=== PATIENT | female | born 1945 | race Caucasian/White ===

== ENCOUNTER 2023-10-10 10:39 | Inpatient (IN) ==
--- NOTE | 2023-10-10 11:04 | Emergency Department Note ---
Impression & Plan Pancreatitis, Abdominal pain, Diarrhea, Hypokalemia ED Provider Note NAME: BRITTNEY FRANK AGE: 77 SEX: F : 1945 ARRIVES VIA: Walk-In INFORMANT: Patient ED PROVIDER(S): Loc Drew DO CHIEF COMPLAINT: diarrhea HPI: Patient is a 77-year-old female who presents to the ER for diarrhea. She notes this has been going on since this past . She was initially going every 1/2 hour but now is only going about 4 times so far today. She notes that it has improved. No vomiting but does have nausea. She is cramping in her stomach which comes and goes intermittently. Denies any chest pain or shortness of breath. No dysuria, urgency or frequency. No other exacerbating or remitting factors. She saw her PCP who noted that this will likely resolve on its own is most likely viral. She does feel very weak and tired. ADDITIONAL HISTORY OBTAINED: Additional history obtained from family who is present at bedside who notes that they saw her PCP and he did nothing for her Chronic Medical/Social Conditions Affecting Care: Per HPI PAST MEDICAL HISTORY:See Below PAST SURGICAL HISTORY:See Below FAMILY HISTORY:See Below SOCIAL HISTORY:See Below HOME MEDICATIONS:See Below ALLERGIES:See Below VITALS:See Below PHYSICAL EXAMINATION: GENERAL: Sitting up in bed, alert, well appearing, well nourished, no distress, non-toxic EYE EXAM: normal conjunctiva. OROPHARYNX: no exudate, no erythema, lips, buccal mucosa, and tongue normal and mucous membranes are moist NECK: supple, no nuchal rigidity, no adenopathy, non-tender LUNGS: Clear to auscultation. Normal chest wall mechanics HEART: no murmurs, S1 normal and S2 normal ABDOMEN: abdomen soft, non-tender, normo-active bowel sounds, no masses, no rebound or guarding. UPPER EXTREMITIES: upper extremities are grossly normal. LOWER EXTREMITIES: No pitting edema. NEURO EXAM: Normal sensorium, cranial nerves II-XII grossly intact, normal speech, no gross weakness of arms, no gross weakness of legs. MEDICAL DECISION MAKING: Patient is a 77-year-old female who presents ER for above-stated complaint. IV was established blood work was obtained. Labs show no significant leukocytosis or anemia. BMP with a mild hyponatremia at 133. Mild hypokalemia 3.4. LFTs and bilirubin is fairly unremarkable. Lipase is normal. UA was clean. Stool culture pending upon admission. CT abdomen pelvis suggested pancreatitis although no bump in lipase. She is having some trouble eating. Discussed with gastroenterology they evaluated the patient at bedside and recommended monitoring overnight. Discussed with hospitalist for further observation and management. CT did suggest an equivocal diverticulitis combination with a PD stone. PD stone is known to patient. Will hold on antibiotics due to the result of stool cultures and defer to hospitalist Consults/Care Managements Discussions: Per MDM Triage Nursing notes reviewed. Limited review of prior medical records performed Vital Signs: reviewed and remarkable for HTN Differential diagnosis: Differential diagnoses includes but is not limited to gastritis, peptic ulcer disease, GERD, gallbladder disease, pancreatitis, small bowel obstruction, appendicitis, diverticulitis, hernia, urinary tract infection, torsion, perforation, trauma, infectious. ER treatment provided: See below Diagnostics interpreted by me include EKG and cardiac monitoring as listed below: -Cardiac Monitoring: An order was placed for continuous cardiac monitoring. The monitor shows a rate of 80 with sinus rhythm. -ECG: none -Laboratory studies:Interpreted by me as stated above in MDM and shown below. Imaging studies: Xrays: As interpreted by me:none CTs show: CT abdomen pelvis per my preliminary interpretation showed no obvious bowel obstruction CT and pelvis per radiologist described above Procedures:none Critical Care: None Past Med/Surg History Problem List (Updated 10/10/23 @ 14:21 by Loc Drew DO) Hypokalemia (Acute) Diarrhea (Acute) Abdominal pain (Acute) Pancreatitis (Acute) Social History Smoking Status: Never smoker Preferred Language: Georgian Feels Safe at Home: Yes Allergies Allergies Allergy/AdvReac Type Severity Reaction Status Date / Time clindamycin Allergy Diarrhea Verified 10/10/23 10:46 Penicillins Allergy Hives Verified 10/10/23 10:45 Results & Data (ED) Vital Signs Vital Signs - 24 hr 10/10/23 10:46 10/10/23 12:24 10/10/23 12:24 Temperature 36.2 C L Temperature Source Temporal Artery Scan Pulse Rate 76 Pulse Rate [Finger] 69 Pulse Rhythm Regular Pulse Strength Normal Respiratory Rate 18 14 Respiratory Effort / Characteristics Non-Labored Spontaneous Respiratory Depth Normal Respiratory Pattern Regular Blood Pressure 189/80 H Blood Pressure [Right Arm] 161/78 H Blood Pressure Mean 116 Blood Pressure Mean [Right Arm] 105 Blood Pressure Position Sitting Pulse Oximetry 99 99 Oxygen Delivery Method Room Air Room Air Room Air Sepsis Recent Fever Within 48 Hours No Sepsis New/Unexplained Change in Mental Status No Sepsis Action Taken by Nursing No Action Required 10/10/23 13:00 10/10/23 14:00 10/10/23 14:03 Temperature Temperature Source Pulse Rate 78 Pulse Rate [Finger] 79 81 Pulse Rhythm Pulse Strength Respiratory Rate 18 14 Respiratory Effort / Characteristics Respiratory Depth Respiratory Pattern Blood Pressure Blood Pressure [Right Arm] 175/87 H 183/91 H Blood Pressure Mean Blood Pressure Mean [Right Arm] 116 121 Blood Pressure Position Pulse Oximetry 95 98 Oxygen Delivery Method Room Air Room Air Sepsis Recent Fever Within 48 Hours Sepsis New/Unexplained Change in Mental Status Sepsis Action Taken by Nursing Laboratory Data 10/10/23 11:27 10/10/23 11:27 Lab Results 10/10/23 10/10/23 10/10/23 Range/Units 11:27 11:35 12:00 WBC 7.71 (4.8-10.8) K/ul RBC 4.75 (4.20-5.40) M/uL Hgb 14.7 (12.0-16.0) g/dl POC Hgb 13.9 (12.0-16.0) g/dl Hct 41.4 (37.0-47.0) % POC Hct 41 (37-47) % MCV 87.2 (80.0-100.0) fL MCH 30.9 (25.0-34.0) pg MCHC 35.5 (32.0-36.0) g/dL RDW Std Deviation 44.1 (36.4-46.3) fL RDW Coeff of Joaquín 13.8 (11.5-14.5) % Plt Count 293 (130-400) K/uL MPV 10.7 (9.4-12.4) fL Immature Gran % (Auto) 0.3 % Neut % (Auto) 58.3 % Lymph % (Auto) 31.9 % Nolan % (Auto) 7.3 % Eos % (Auto) 1.9 % Baso % (Auto) 0.3 % Neut # (Auto) 4.50 (1.40-6.50) K/uL Lymph # (Auto) 2.46 (1.20-3.40) K/uL Nolan # (Auto) 0.56 (0.11-0.59) K/uL Eos # (Auto) 0.15 (0.00-0.50) K/uL Baso # (Auto) 0.02 (0.00-0.20) K/uL Immature Gran # (Auto) 0.02 (0.01-0.20) K/uL POC Sodium 135 (135-144) mmol/L Sodium 133 L (136-145) mmol/L POC Potassium 3.4 (3.3-5.0) mmol/L Potassium 3.4 L (3.5-5.1) mmol/L POC Chloride 101 (101-112) mmol/L Chloride 101 (98-107) mmol/L Carbon Dioxide 22 (21-32) mmol/L POC Total CO2 20 L (24-31) mmol/L Anion Gap 10 (3-11) POC Anion Gap 19.0 (16-25) mmol/L POC BUN 13 (7-18) mg/dl BUN 15 (6-23) mg/dl Creatinine 0.98 (0.6-1.2) mg/dl POC Creatinine 1.0 (0.6-1.3) mg/dl Est Cr Clr Drug Dosing 57.1 ml/min Est GFR ( Amer) 64.5 ml/min Est GFR (Non-Af Amer) 55.6 ml/min BUN/Creatinine Ratio 15.3 (10-20) Glucose 146 H (70-99(Fasting)) mg/dl POC Glucose (other) 141 H (70-99) mg/dl Calcium 9.2 (8.6-10.3) mg/dl POC Ioniz Calcium Tuan 1.11 L (1.12-1.32) mmol/l Total Bilirubin 1.1 H (0.2-1.0) mg/dl AST 33 (13-39) U/L ALT 59 H (7-52) U/L Alkaline Phosphatase 88 (34-104) U/L Total Protein 7.3 (6.0-8.3) gm/dl Albumin 4.1 (3.4-5.0) gm/dl Globulin 3.2 (2.5-4.0) gm/dl Albumin/Globulin Ratio 1.3 (0.9-2) Lipase 26 (11-82) U/L Urine Color Yellow Urine Appearance Clear (Clear) Urine pH 6.0 (4.5-7.5) Ur Specific [place] 1.010 (1.000-1.030) Urine Protein Negative (Negative) Urine Glucose (UA) Negative (Negative) Urine Ketones Negative (Negative) Urine Blood Negative (Negative) Urine Nitrite Negative (Negative) Urine Bilirubin Negative (Negative) Urine Urobilinogen Negative (Negative) Ur Leukocyte Esterase Negative (Negative) Administered Medications Potassium Chloride (K Tushar / Wtr) 10 meq in 100 mls @ 100 mls/hr IV Q1H TERI Stop: 10/10/23 15:44 Last Admin: 10/10/23 13:56 Dose: 100 mls/hr Documented By: NURYS Discontinued Medications Sodium Chloride (Nss) 1,000 mls @ 999 mls/hr IV .Q1H1M ONE Stop: 10/10/23 12:00 Last Infusion: 10/10/23 13:33 Dose: Infused Documented By: Admin: 10/10/23 11:21 Dose: 999 mls/hr Documented By: NURYS Ioversol (Optiray 320 100ml) 94 ml IV ONCE ONE Stop: 10/10/23 11:43 Last Admin: 10/10/23 11:43 Dose: 94 ml Documented By: JODY Imaging Data Radiologist's Impression: Abdomen/Pelvis CT 10/10/23 11:[address] WITH IV CONTRAST CT DOSE: 1324.46 mGy.cm HISTORY: Acute generalized abdominal pain with diarrhea abd pain w/ diarrhea TECHNIQUE: Multiaxial CT images of the abdomen and pelvis were performed following the IV administration of 94 cc of Optiray, A dose lowering technique was utilized adhering to the principles of ALARA. COMPARISON STUDY: None. FINDINGS: Coronary artery calcifications. No acute lower thoracic abnormality. No free air. Unremarkable spleen, and adrenal glands. Cholecystectomy. Intrahepatic and extrahepatic biliary ductal dilation with the common bile duct measuring 11 mm. The pancreatic duct is dilated measuring up to 6 mm. Questioned mild interstitial edema of the pancreatic head and uncinate process. There is a 0.7 x 0.6 x 1.3 cm stone within the pancreatic duct just proximal to the ampulla. There is an additional 4 mm calcification within the uncinate process of the pancreas on image 155 series 3. Hepatic steatosis. Patency of the hepatic and portal veins. Unremarkable kidneys. Right-sided pelviectasis versus renal sinus cyst. No renal or ureteral calculi or hydronephrosis. Hysterectomy with pelvic floor relaxation. Unremarkable urinary bladder. Atherosclerosis of the aorta without aneurysm. Subcentimeter retroperitoneal lymph nodes. No bowel obstruction. Colonic diverticulosis. Minimal inflammatory stranding adjacent to the proximal sigmoid on image 223. Scattered large and small bowel air-fluid levels. Appendectomy. Chronic area of suggested epiploic appendagitis within the abdominal lower quadrant on image 209 measures 1.7 cm. No ascites. Diastases recti with small fat filled umbilical hernia. Degenerative changes of the shoulders and spine. Grade 1 anterolisthesis L4 on L5 secondary to severe chronic facet arthrosis. IMPRESSION: 1. Cholecystectomy with likely postsurgical biliary duct dilation. Additionally, there is pancreatic ductal dilation with equivocal mild acute pancreatitis associated with a 1.3 cm pancreatic ductal stone just proximal to the ampulla. GI consultation is needed. 2. Colonic diverticulosis with equivocal findings of proximal sigmoid diverticulitis. 3. No bowel obstruction or pneumoperitoneum. 4. Scattered colonic air-fluid levels compatible with the patient's history of diarrhea. 5. Hepatic steatosis. ACT 112: Negative or not required by law. The above report was generated using voice recognition software. It may contain grammatical, syntax or spelling errors. Electronically signed by: Jose Alfredo Maria M.D. 10/10/2023 12:28 PM Discharge Plan Visit Data Chief Complaint: Diarrhea Stated Complaint: DIARRHEA FOR 6 DAYS ED Provider: Loc Drew Discharge Problem: Pancreatitis, Abdominal pain, Diarrhea, Hypokalemia Forms Stand Alone Forms: [facility] Referrals Referrals: PCP,NO [Physician] - Discharge Problem: Pancreatitis Qualifiers: Chronicity: acute Pancreatitis type: unspecified pancreatitis type Acute pancreatitis complication: unspecified Qualified Code(s): K85.90 - Acute pancreatitis without necrosis or infection, unspecified Abdominal pain Qualifiers: Abdominal location: unspecified location Qualified Code(s): R10.9 - Unspecified abdominal pain Diarrhea Qualifiers: Diarrhea type: unspecified type Qualified Code(s): R19.7 - Diarrhea, unspecified
[2023-10-10] MEDS: SODIUM CHLORIDE 0.9% 1,000 ML IV ONE (11:21)
[2023-10-10] MEDS: OPTIRAY 320 100ml IV ONE (11:43)
[2023-10-10 11:47] LABS: iSTAT Hemoglobin 13.9 g/dl (12.0-16.0); iSTAT Ionized Calcium 1.11 mmol/l (1.12-1.32); iSTAT Potassium 3.4 mmol/L (3.3-5.0)
[2023-10-10 12:02] LABS: Basophils # (auto) 0.02 K/uL (0.00-0.20); Basophils % (auto) 0.3 %; Eosinophils # (auto) 0.15 K/uL (0.00-0.50); Eosinophils % (auto) 1.9 %; Hematocrit (blood only) 41.4 % (37.0-47.0); Hemoglobin 14.7 g/dl (12.0-16.0); Immature Granulocytes # (auto) 0.02 K/uL (0.01-0.20); Immature Granulocytes % (auto) 0.3 %; Lymphocytes # (auto) 2.46 K/uL (1.20-3.40); Lymphocytes % (auto) 31.9 %; Mean Corpuscular Hemoglobin 30.9 pg (25.0-34.0); Mean Corpuscular Hgb Conc 35.5 g/dL (32.0-36.0); Mean Corpuscular Volume 87.2 fL (80.0-100.0); Mean Platelet Volume 10.7 fL (9.4-12.4); Monocytes # (auto) 0.56 K/uL (0.11-0.59); Monocytes % (auto) 7.3 %; Neutrophils % (auto) 58.3 %; Platelet Count 293 K/uL (130-400); RDW Coefficient of Variation 13.8 % (11.5-14.5); RDW Standard Deviation 44.1 fL (36.4-46.3); Red Blood Count 4.75 M/uL (4.20-5.40); White Blood Count 7.71 K/ul (4.8-10.8)
[2023-10-10 12:18] LABS: Albumin Globulin Ratio 1.3 (0.9-2); Albumin Level 4.1 gm/dl (3.4-5.0); BUN Creatinine Ratio 15.3 (10-20); Bilirubin,Total 1.1 mg/dl (0.2-1.0); Calcium 9.2 mg/dl (8.6-10.3); Creatinine Clr Calc Pharmacy 57.1 ml/min; Est GFR (African American) 64.5 ml/min; Est GFR (Non-African American) 55.6 ml/min; Globulin 3.2 gm/dl (2.5-4.0); Potassium 3.4 mmol/L (3.5-5.1); Total Protein 7.3 gm/dl (6.0-8.3)
[2023-10-10 12:19] LABS: Appearance Urine Clear (Clear); Bilirubin Urine Negative (Negative); Blood Urine Negative (Negative); Color Urine Yellow; Glucose Urine UA Negative (Negative); Ketones Urine Negative (Negative); Leukocyte Esterase Urine Negative (Negative); Nitrite Urine Negative (Negative); Protein Urine Negative (Negative); Urobilinogen Urine Negative (Negative)
--- NOTE | 2023-10-10 12:30 | CT Scan Report ---
ABDOMEN AND PELVIS CT WITH IV CONTRAST CT DOSE: 1324.46 mGy.cm HISTORY: Acute generalized abdominal pain with diarrhea abd pain w/ diarrhea TECHNIQUE: Multiaxial CT images of the abdomen and pelvis were performed following the IV administrat ion of 94 cc of Optiray, A dose lowering technique was utilized adhering to the principles of ALARA. COMPARISON STUDY: None. FINDINGS: Coronary artery calcifications. No acute lower thoracic abnormality. No free air. Unremarka ble spleen, and adrenal glands. Cholecystectomy. Intrahepatic and extrahepatic biliary ductal dilatio n with the common bile duct measuring 11 mm. The pancreatic duct is dilated measuring up to 6 mm. Que stioned mild interstitial edema of the pancreatic head and uncinate process. There is a 0.7 x 0.6 x 1 .3 cm stone within the pancreatic duct just proximal to the ampulla. There is an additional 4 mm calc ification within the uncinate process of the pancreas on image 155 series 3. Hepatic steatosis. Paten cy of the hepatic and portal veins. Unremarkable kidneys. Right-sided pelviectasis versus renal sinus cyst. No renal or ureteral calculi or hydronephrosis. Hysterectomy with pelvic floor relaxation. Unremarkable urinary bladder. Atheroscl erosis of the aorta without aneurysm. Subcentimeter retroperitoneal lymph nodes. No bowel obstruction . Colonic diverticulosis. Minimal inflammatory stranding adjacent to the proximal sigmoid on image 22 3. Scattered large and small bowel air-fluid levels. Appendectomy. Chronic area of suggested epiploic appendagitis within the abdominal lower quadrant on image 209 measures 1.7 cm. No ascites. Diastases recti with small fat filled umbilical hernia. Degenerative changes of the shoulders and spine. Grade 1 anterolisthesis L4 on L5 secondary to severe chronic facet arthrosis. IMPRESSION: 1. Cholecystectomy with likely postsurgical biliary duct dilation. Additionally, there is pancreatic ductal dilation with equivocal mild acute pancreatitis associated with a 1.3 cm pancreatic ductal sto ne just proximal to the ampulla. GI consultation is needed. 2. Colonic diverticulosis with equivocal findings of proximal sigmoid diverticulitis. 3. No bowel obstruction or pneumoperitoneum. 4. Scattered colonic air-fluid levels compatible with the patient's history of diarrhea. 5. Hepatic steatosis. ACT 112: Negative or not required by law. The above report was generated using voice recognition software. It may contain grammatical, syntax o r spelling errors. Electronically signed by: Jose Alfredo Maria M.D. 10/10/2023 12:28 PM
--- NOTE | 2023-10-10 12:52 | Gastrointestinal Consultation ---
Date of Consultation October 10, 2023 Assessment & Plan (1) Pancreatitis: 77 year old female with presented to the ED w/ worsening diarrhea x 1 week, distant history of c.diff colitis years ago, imaging incidentally showing PD dilation, PD stone and acute pancreatitis. She is s/p CCY years ago, no apparent CBD stone on imaging - Diarrhea, equivocal colitis vs diverticulitis on imaging - She is having a difficult time maintaining fluid intake - Consider admission for observation - Check stool culture and c.diff - If negative, consider low dose Questran once daily - CBD dilation, PD dilation, PD stone and acute pancreatitis - Symptomatic management - LR fluid hydration - Antiemetics PRN - May have clear liquids - Should have a referral for an outpatient EUS to be completed in about 4 weeks time Thank you for allowing us to participate in the care of this patient. Please call with any acute changes, questions or concerns. Please see addendum below with additional recommendation from my supervising physician. I spent a total of 60 minutes on the date of service in review of patient's record, and previously obtained information in person and appropriate medical visit, discussion and education of plan, with patient and/or caregiver, placing orders for tests/referral/procedures as medically necessary and documentation of pertinent clinical information in patient's medical records for their visit today. Supervising Physician Co-Signing Physician Notes I examined the patient and reviewed patient's chart , laboratory data and imaging studies. I agree with with assessment and plan of care as suggested by advanced practice provider History of Present Illness Reason for Consultation: pancreatitis Requesting Physician: Rajendra Attending Physician: Mike Joyner History of Present Illness 77 year old female with history of c diff colitis around 2014, s/p ccy, HTN, dyslipidemia who presented to the ED for worsening diarrhea x 1 week. Notes she has had history of c.diff years ago after a course of ABX. Does suggest in some case, has had intermittent diarrhea since. Over the last week or so, diarrhea has become severe, constant and daily. Watery stools. No black or bloody stools. Has already had 5 loose stools daily. No abd pain. Mild nausea. No vomiting. No pain. No appetite. No GERD. No dysphagia. Weight stable Labs: normal WBC, H&H, PLT, BUN/ANALYTICS CONSULTANT, Tbili 1.1, AST 33, ALT 59, ALKP 88, lipase 26 CTAP 2023: Cholecystectomy with likely postsurgical biliary duct dilation. Additionally, there is pancreatic ductal dilation with equivocal mild acute pancreatitis associated with a 1.3 cm pancreatic ductal stone just proximal to the ampulla. GI consultation is needed. Colonic diverticulosis with equivocal findings of proximal sigmoid diverticulitis. No bowel obstruction or pneumoperitoneum. Scattered colonic air-fluid levels compatible with the patient's history of diarrhea. Hepatic steatosis. Notes a colonoscopy at [facility] about 3-4 years ago. She has history of diverticulitis. Does not recall ever having EUS or ERCP in the past Has never had pancreatitis in the past Allergies Allergy/AdvReac Type Severity Reaction Status Date / Time clindamycin Allergy Diarrhea Verified 10/10/23 14:38 Penicillins Allergy Hives Verified 10/10/23 14:38 Home Medications Medication Instructions Recorded Confirmed Type acidophilus 25 million 1 tab PO DAILY 10/10/23 10/10/23 History cell-pectin, citrus 100 mg tablet atorvastatin 20 mg tablet 20 mg PO DAILY 10/10/23 10/10/23 History diltiazem HCl 180 mg 180 mg PO DAILY 10/10/23 10/10/23 History capsule,extended release 24 hr fluticasone propionate 50 2 spray intranasal DAILY PRN 10/10/23 10/10/23 History mcg/actuation nasal congestion/allergies spray,suspension naproxen sodium 220 mg tablet 220 mg PO DAILY 10/10/23 10/10/23 History (Aleve) omeprazole 20 mg capsule,delayed 20 mg PO BID 10/10/23 10/10/23 History release Patient History Social History Smoking Status: Never smoker Preferred Language: Belarusian Feels Safe at Home: Yes Review of Systems Review of Systems: All other findings negative except as noted in HPI. Physical Exam Constitutional: WD/WN, vitals as above Respiratory: normal respiratory effort, lungs clear to auscultation Cardiovascular: Rate/Rhythm: regular rate and regular rhythm Gastrointestinal (Abdomen): normal bowel sounds, soft, nontender, no hepatos plenomegaly Skin: no rashes, warm and dry Results & Data Vital Signs (Past 12 Hours) Vital Signs Temp Pulse Pulse Resp BP BP Pulse Ox 10/10/23 12:24 10/10/23 12:24 69 14 161/78 H 99 10/10/23 10:46 36.2 C L 76 18 189/80 H 99 O2 Del Method 10/10/23 12:24 Room Air 10/10/23 12:24 Room Air 10/10/23 10:46 Room Air Laboratory Results 10/10/23 10/10/23 10/10/23 Range/Units 12:00 11:35 11:27 WBC 7.71 (4.8-10.8) K/ul RBC 4.75 (4.20-5.40) M/uL Hgb 14.7 (12.0-16.0) g/dl POC Hgb 13.9 (12.0-16.0) g/dl Hct 41.4 (37.0-47.0) % POC Hct 41 (37-47) % MCV 87.2 (80.0-100.0) fL MCH 30.9 (25.0-34.0) pg MCHC 35.5 (32.0-36.0) g/dL RDW Std Deviation 44.1 (36.4-46.3) fL RDW Coeff of Joaquín 13.8 (11.5-14.5) % Plt Count 293 (130-400) K/uL MPV 10.7 (9.4-12.4) fL Immature Gran % (Auto) 0.3 % Neut % (Auto) 58.3 % Lymph % (Auto) 31.9 % [place] % (Auto) 7.3 % Eos % (Auto) 1.9 % Baso % (Auto) 0.3 % Neut # (Auto) 4.50 (1.40-6.50) K/uL Lymph # (Auto) 2.46 (1.20-3.40) K/uL [place] # (Auto) 0.56 (0.11-0.59) K/uL Eos # (Auto) 0.15 (0.00-0.50) K/uL Baso # (Auto) 0.02 (0.00-0.20) K/uL Immature Gran # (Auto) 0.02 (0.01-0.20) K/uL POC Sodium 135 (135-144) mmol/L Sodium 133 L (136-145) mmol/L POC Potassium 3.4 (3.3-5.0) mmol/L Potassium 3.4 L (3.5-5.1) mmol/L POC Chloride 101 (101-112) mmol/L Chloride 101 (98-107) mmol/L Carbon Dioxide 22 (21-32) mmol/L POC Total CO2 20 L (24-31) mmol/L Anion Gap 10 (3-11) POC Anion Gap 19.0 (16-25) mmol/L POC BUN 13 (7-18) mg/dl BUN 15 (6-23) mg/dl Creatinine 0.98 (0.6-1.2) mg/dl POC Creatinine 1.0 (0.6-1.3) mg/dl Est Cr Clr Drug Dosing 57.1 ml/min Est GFR ( Amer) 64.5 ml/min Est GFR (Non-Af Amer) 55.6 ml/min BUN/Creatinine Ratio 15.3 (10-20) Glucose 146 H (70-99(Fasting)) mg/dl POC Glucose (other) 141 H (70-99) mg/dl Calcium 9.2 (8.6-10.3) mg/dl POC Ioniz Calcium Tuan 1.11 L (1.12-1.32) mmol/l Total Bilirubin 1.1 H (0.2-1.0) mg/dl AST 33 (13-39) U/L ALT 59 H (7-52) U/L Alkaline Phosphatase 88 (34-104) U/L Total Protein 7.3 (6.0-8.3) gm/dl Albumin 4.1 (3.4-5.0) gm/dl Globulin 3.2 (2.5-4.0) gm/dl Albumin/Globulin Ratio 1.3 (0.9-2) Lipase 26 (11-82) U/L Urine Color Yellow Urine Appearance Clear (Clear) Urine pH 6.0 (4.5-7.5) Ur Specific [place] 1.010 (1.000-1.030) Urine Protein Negative (Negative) Urine Glucose (UA) Negative (Negative) Urine Ketones Negative (Negative) Urine Blood Negative (Negative) Urine Nitrite Negative (Negative) Urine Bilirubin Negative (Negative) Urine Urobilinogen Negative (Negative) Ur Leukocyte Esterase Negative (Negative) PG Care Time/CCT Total # of Minutes Spent Total Time Spent with Patient: Total time spent is greater than 50% in coordination of care (as documented) at patient's floor/unit and/or counseling patient: Coding Level of Care Code 71499 INT INP/OBS CARE MIN Diagnoses Pancreatitis K85.90
--- NOTE | 2023-10-10 13:48 | History & Physical Report ---
Date of Service October 10, 2023 Assessment & Plan (1) Diarrhea: Plan: Nonbloody, liquidy diarrhea that began on 10/04 Hourly frequency up until Monday, then has had 56 episodes since then No recent antibiotic use No pain at present C. difficile/PCR stool ordered, pending Supportive care with fluids Clear liquid diet Acetaminophen as needed for pain Zofran as needed for nausea/vomiting A.m. CBC, CMP, mag, lipase (2) Pancreatitis: Plan: A/P CT revealed mild acute pancreatitis with an associated 1.3 cm pancreatic ductal stone Patient reports she has known about this stone for several years and it has never caused her issues Lipase WNL at 26 Clinically, she denies epigastric pain or pain rating to the back Gastroenterology consult appreciated Outpatient EUS recommended in 4 weeks (3) Hypokalemia: Plan: Mild; K3.4 on arrival Likely secondary to GI losses Magnesium ordered, pending K rider 10mEq x 2 given Follow a.m. BMP Plan Disposition: [facility] - [facility] Full code Clear liquid diet VTE PPx: SCDs History of Present Illness Chief Complaint: Diarrhea Primary Care Provider: Zara Mims MD Debra is a pleasant 77yo female with PMH of diverticulitis, C. difficile (secondary to clindamycin use), HTN, HLD, ALLEY, and GERD. She presented for diarrhea since 10/04. Patient reports she has been having diarrhea every hour between to Monday, and then had 5-6 episodes of diarrhea today. No blood in stool. Patient did take Pepto-Bismol on the first day, and reports that she had black liquidy stool after taking, but this has since reverted back to a brown/mucousy stool. Stool is liquid in consistency. No solid stool in between. She denies nausea or vomiting. No recent change in d iet prior to diarrhea starting; however, she notes she has not been eating much since the diarrhea started. Patient did not take her regular morning medications today; no recent change in medication. She has not recently been on antibiotics. She does not use supplemental oxygen at home, but does use a CPAP at night. No sick contacts. No recent travel. Patient does have a history of intermittent IBS, but she has never had diarrhea like this in the past. No history of gluten allergy or food intolerances. She does have a history of diverticulitis, colitis, and C. difficile 5 years ago after taking clindamycin for an infection. She denies smoking, tobacco use, and alcohol use. Patient is hypertensive at 175/87 at time of admission; vitals otherwise stable. ED course: NSS 1000 mL IV K rider 10mEq x 2 ROS: Patient endorses generalized fatigue, TRIPP (resolved), dry cough (which patient relates to sinus congestion and allergies), diarrhea, Patient denies fever, chills, night-sweats, dizziness, lightheadedness, chest pain, chest palpation, pleuritic CP, SOB, abdominal pain/cramping, burning with urination, dysuria, blood in the urine/stool, or numbness/tingling in the arms or legs. Allergies Allergy/AdvReac Type Severity Reaction Status Date / Time clindamycin Allergy Diarrhea Verified 10/10/23 14:38 Penicillins Allergy Hives Verified 10/10/23 14:38 Home Medications Medication Instructions Recorded Confirmed Type acidophilus 25 million 1 tab PO DAILY 10/10/23 10/10/23 History cell-pectin, citrus 100 mg tablet atorvastatin 20 mg tablet 20 mg PO DAILY 10/10/23 10/10/23 History diltiazem HCl 180 mg 180 mg PO DAILY 10/10/23 10/10/23 History capsule,extended release 24 hr fluticasone propionate 50 2 spray intranasal DAILY PRN 10/10/23 10/10/23 History mcg/actuation nasal congestion/allergies spray,suspension naproxen sodium 220 mg tablet 220 mg PO DAILY 10/10/23 10/10/23 History (Aleve) omeprazole 20 mg capsule,delayed 20 mg PO BID 10/10/23 10/10/23 History release Past Med/Surg History Problem List (Updated 10/10/23 @ 14:21 by Loc Drew DO) Hypokalemia (Acute) Diarrhea (Acute) Abdominal pain (Acute) Pancreatitis (Acute) Social History Smoking Status: Never smoker Preferred Language: Mosotho Feels Safe at Home: Yes Review of Systems Review of Systems: See HPI above Physical Exam Physical Exam: General: no acute distress; pleasant affect; non-toxic appearing; well-debra shed; cooperative; SpO2 98% on RA HEENT: normocephalic, atraumatic; no scleral icterus; PERRLA; moist mucus membrane; vision and hearing grossly intact Neck: supple; no lymphadenopathy; trachea midline Skin: warm, dry without signs of tenting; no cyanosis; no rashes, bruising, lesions, or erythema noted CV: chest wall NTP; RRR; S1/S2 normal; no murmurs/rubs/gallops; pulses intact and symmetric at radial, DP, and PT Lungs: no acute respiratory distress; symmetrical chest wall expansion; clear breath sounds across all lung love w/o adventitious sounds; no wheezing ABD: Soft; all 4 quadrants are NTP; BS present; no rebound/guarding; no distention; no rashes or bruising on the abdomen or flanks MSK: no tics or fasciculations; no edema noted in the LEs b/l, nonerythematous Neuro: A&Ox3; normal mood and affect; fluent speech; no focal deficits; sensation grossly intact in the LEs b/l Results & Data Results & Data Vital Signs (Past 12 Hours) Vital Signs Temp Pulse Pulse Resp BP BP Pulse Ox 10/10/23 13:00 79 18 175/87 H 95 10/10/23 12:24 10/10/23 12:24 69 14 161/78 H 99 10/10/23 10:46 36.2 C L 76 18 189/80 H 99 O2 Del Method 10/10/23 13:00 Room Air 10/10/23 12:24 Room Air 10/10/23 12:24 Room Air 10/10/23 10:46 Room Air Laboratory Results Abnormal lab results 10/10/23 10/10/23 Range/Units 11:27 11:35 Sodium 133 L (136-145) mmol/L Potassium 3.4 L (3.5-5.1) mmol/L POC Total CO2 20 L (24-31) mmol/L Glucose 146 H (70-99(Fasting)) mg/dl POC Glucose (other) 141 H (70-99) mg/dl POC Ioniz Calcium Tuan 1.11 L (1.12-1.32) mmol/l Total Bilirubin 1.1 H (0.2-1.0) mg/dl ALT 59 H (7-52) U/L Diagnostic Findings Abdomen/Pelvis CT 10/10/23 11:[address] WITH IV CONTRAST CT DOSE: 1324.46 mGy.cm HISTORY: Acute generalized abdominal pain with diarrhea abd pain w/ diarrhea TECHNIQUE: Multiaxial CT images of the abdomen and pelvis were performed following the IV administration of 94 cc of Optiray, A dose lowering technique was utilized adhering to the principles of ALARA. COMPARISON STUDY: None. FINDINGS: Coronary artery calcifications. No acute lower thoracic abnormality. No free air. Unremarkable spleen, and adrenal glands. Cholecystectomy. Intr ahepatic and extrahepatic biliary ductal dilation with the common bile duct measuring 11 mm. The pancreatic duct is dilated measuring up to 6 mm. Questioned mild interstitial edema of the pancreatic head and uncinate process. There is a 0.7 x 0.6 x 1.3 cm stone within the pancreatic duct just proximal to the ampulla. There is an additional 4 mm calcification within the uncinate process of the pancreas on image 155 series 3. Hepatic steatosis. Patency of the hepatic and portal veins. Unremarkable kidneys. Right-sided pelviectasis versus renal sinus cyst. No renal or ureteral calculi or hydronephrosis. Hysterectomy with pelvic floor relaxation. Unremarkable urinary bladder. Atherosclerosis of the aorta without aneurysm. Subcentimeter retroperitoneal lymph nodes. No bowel obstruction. Colon ic diverticulosis. Minimal inflammatory stranding adjacent to the proximal sigmoid on image 223. Scattered large and small bowel air-fluid levels. Appendectomy. Chronic area of suggested epiploic appendagitis within the abdominal lower quadrant on image 209 measures 1.7 cm. No ascites. Diastases recti with small fat filled umbilical hernia. Degenerative changes of the shoulders and spine. Grade 1 anterolisthesis L4 on L5 secondary to severe chronic facet arthrosis. IMPRESSION: 1. Cholecystectomy with likely postsurgical biliary duct dilation. Additionally, there is pancreatic ductal dilation with equivocal mild acute pancreatitis associated with a 1.3 cm pancreatic ductal stone just proximal to the ampulla. GI consultation is needed. 2. Colonic diverticulosis with equivocal findings of proximal sigmoid diverticulitis. 3. No bowel obstruction or pneumoperitoneum. 4. Scattered colonic air-fluid levels compatible with the patient's history of diarrhea. 5. Hepatic steatosis. ACT 112: Negative or not required by law. The above report was generated using voice recognition software. It may contain grammatical, syntax or spelling errors. Electronically signed by: Jose Alfredo Maria M.D. 10/10/2023 12:28 PM Code Status & VTE Plan Code Status Full code VTE Prophylaxis Plan VTE Prophylaxis will be ordered: Yes Supervising Physician Co-Signing Physician Notes I have personally seen, evaluated and examined the patient. I have also personally discussed the management of the patient with the resident physician/IAM and I agree with the exam findings documented in the history and physical examination and the documented assessment and plan unless otherwise stated below. Brief Exam: In general this is a pleasant 77-year-old female who is alert and oriented x 3 at the time of my exam she appears to be in no acute distress. HEENT is normocephalic atraumatic. Heart: Regular rate and rhythm. No murmur or ectopy or rub. Lungs: Clear bilaterally. Abdomen: Obese soft nontender hyperactive bowel sounds no pressure organomegaly or abdominal bruits but exam is somewhat limited in this regard given her body habitus. Extremities: Intact with no significant edema. Neurologically: Alert and oriented x 3 no focal deficit on gross neurologic exam. Assessment/plan: As described above. Please refer to orders for further planning. In general I doubt acute pancreatitis. The patient has a pretty benign abdominal exam but lipase is only 29. Will repeat a lipase in the morning for completeness. Give the patient clear liquids as recommended by GI. Outpatient recommendations for GI follow-up for EUS at discharge per GI recommendations. Await stool cultures. Otherwise supportive care with IV fluids and clear liquids. PG Care Time/CCT Total # of Minutes Spent Total Time Spent with Patient: Total time spent is greater than 50% in coordination of care (as documented) at patient's floor/unit and/or counseling patient: Coding [place] [address] INT INP/OBS CARE 2/55MIN Patient Type Established Medical Decision Making Moderate Complexity Diagnoses Diarrhea R19.7 Diarrhea type: unspecified type Pancreatitis K85.90 Acute pancreatitis complication: unspecified Chronicity: acute Pancreatitis type: unspecified pancreatitis type Hypokalemia E87.6 (1) Diarrhea Diarrhea type: unspecified type Qualified Code(s): R19.7 - Diarrhea, unspecified (2) Pancreatitis Acute pancreatitis complication: unspecified Chronicity: acute Pancreatitis type: unspecified pancreatitis type Qualified Code(s): K85.90 - Acute pancreatitis without necrosis or infection, unspecified
[2023-10-10] MEDS: POTASSIUM CHLORIDE / WTR 10 MEQ/100 ML PLCT IV SCH (13:56)
[2023-10-10 14:50] LABS: Magnesium 1.7 mg/dl (1.7-2.4)
[2023-10-10 15:04] LABS: Adenovirus F 40/41 PCR Not Detected (NotDetected); Astrovirus PCR Not Detected (NotDetected); Campylobacter PCR Not Detected (NotDetected); Cryptosporidium PCR Not Detected (NotDetected); Cyclospora cayetanensis PCR Not Detected (NotDetected); Entamoeba histolytica PCR Not Detected (NotDetected); Enteroaggregative E.coli(EAEC) Not Detected (NotDetected); Enteropathogenic E.coli (EPEC) Not Detected (NotDetected); Enterotoxigenic E.coli (ETEC) Not Detected (NotDetected); Giardia lamblia PCR Not Detected (NotDetected); Norovirus GI/GII PCR Not Detected (NotDetected); Plesiomonas shigelloides PCR Not Detected (NotDetected); Rotavirus A PCR Not Detected (NotDetected); Salmonella PCR Not Detected (NotDetected); Shiga-like Toxin E.coli (STEC) Not Detected (NotDetected); Shigella/Enteroinvasive E.coli Not Detected (NotDetected); Vibrio cholerae PCR Not Detected (NotDetected); Vibrio species PCR Not Detected (NotDetected); Yersinia enterocolitica PCR Not Detected (NotDetected)
[2023-10-10] MEDS: dilTIAZem HCL 180 MG CAPCR PO STA (15:21)
[2023-10-10 15:23] LABS: Sapovirus PCR DETECTED (NotDetected)
[2023-10-10] MEDS: PLASMA-LYTE A 1,000 ML IV SCH (16:12)
[2023-10-10] MEDS ORDERED: ONDANSETRON INJ 2 MG/ML 2 ML VIAL IV PRN (21:09)
[2023-10-10] MEDS ORDERED: ACETAMINOPHEN 325 MG TAB PO PRN (21:09)
[2023-10-10] MEDS ORDERED: FLUTICASONE PROPIONATE NA SPR 16 GM BTL PRN (21:09)
[2023-10-10] MEDS: PANTOprazole 40 MG TAB PO SCH (22:46)
[2023-10-11 06:48] LABS: Basophils # (auto) 0.03 K/uL (0.00-0.20); Basophils % (auto) 0.5 %; Eosinophils % (auto) 5.3 %; Hematocrit (blood only) 37.8 % (37.0-47.0); Hemoglobin 13.1 g/dl (12.0-16.0); Immature Granulocytes # (auto) 0.02 K/uL (0.01-0.20); Immature Granulocytes % (auto) 0.4 %; Lymphocytes # (auto) 2.18 K/uL (1.20-3.40); Lymphocytes % (auto) 38.9 %; Mean Corpuscular Hemoglobin 31.1 pg (25.0-34.0); Mean Corpuscular Hgb Conc 34.7 g/dL (32.0-36.0); Mean Corpuscular Volume 89.8 fL (80.0-100.0); Mean Platelet Volume 11.2 fL (9.4-12.4); Monocytes # (auto) 0.38 K/uL (0.11-0.59); Monocytes % (auto) 6.8 %; Neutrophils % (auto) 48.1 %; Platelet Count 244 K/uL (130-400); RDW Standard Deviation 45.8 fL (36.4-46.3); Red Blood Count 4.21 M/uL (4.20-5.40); White Blood Count 5.61 K/ul (4.8-10.8)
[2023-10-11 07:03] LABS: Albumin Globulin Ratio 1.3 (0.9-2); Albumin Level 3.4 gm/dl (3.4-5.0); BUN Creatinine Ratio 11.8 (10-20); Bilirubin,Total 0.8 mg/dl (0.2-1.0); Calcium 8.9 mg/dl (8.6-10.3); Creatinine Clr Calc Pharmacy 74.2 ml/min; Est GFR (African American) 87.7 ml/min; Est GFR (Non-African American) 75.7 ml/min; Globulin 2.6 gm/dl (2.5-4.0); Magnesium 1.9 mg/dl (1.7-2.4); Potassium 3.3 mmol/L (3.5-5.1)
--- NOTE | 2023-10-11 07:14 | Hospitalist Progress Note ---
"Date of Service October 11, 2023 Assessment & Plan (1) Diarrhea: (2) Pancreatitis: (3) Abdominal pain: (4) Hypokalemia: Plan Debra is a 77F w/ PMH of pancreatic ductal stone who presented with profuse liquid diarrhea and was admitted for supportive management of acute Sapovirus infection. Diarrhea | Sapovirus Positive - Ongoing, high frequency, non-bloody diarrhea (ongoing since 10/04) Continues every 2 hours - No recent antibiotic use, no abdominal pain C Diff negative - Continue supportive measures IVFs Imodium PRN Clear liquid diet Tylenol PRN for pain Zofran PRN for nausea - Scheduled Metamucil to aid in stool bulk formation - Follow labs Pancreatitis: - A/P CT revealed mild acute pancreatitis with an associated 1.3 cm pancreatic ductal stone Patient reports she has known about this stone for several years and it has never caused her issues - No active epigstric/abdominal pain or pain radiating to back - Lipase WNL and downtrending - GI recommending supportive measures w/ possible outpatient EUS Hypokalemia: - Ongoing - Unable to tolerate IV K - Oral K provided 10/10 Plan Disposition: Med/Surg pending reduced stool frequency, requiring ongoing supportive measures Code: Full code Diet: Clear liquid diet VTE PPx: SCDs/Ambulation Admission and Anticipated Discharge Date Admission Date: October 10, 2023 Supervising Physician Co-Signing Physician Notes I personally examined the patient and verified all hoffman points of history and exam, discussed case, and agree with decision making with Dr Ramirez cid diarrhea about once an hour imodium did help some vitals noted nad but fatigued heent nc at mmm breathing unlabored no accessory muscles good effort skin without rashes pallor or icterus neuro no focal deficits ongoing intractable diarrhea - Cdiff negative, sapovirus (+). supportive care, imodium, fiber, possibly cholestyramine otherwise as above Subjective No acute events overnight. Patient continues to have frequent diarrhea, tearful at bedside, noting fatigue from ongoing bowel movements. Denies abdominal pain, fevers, or chills. Notes this is very different from her episode of C diff. Patient denies epigastric pain. Physical Exam Physical Exam: General: NAD, pleasant, but intermittently tearful HEENT: NCAT, anicteric sclera, dry mucous membranes Skin: No rashes, lesions, or erythema CV: RRR, n0 MRG Lungs: Non-labored, CTAB ABD: Soft, non-distended, no TTP, active bowel sounds, no masses Neuro: A&Ox3 Results & Data Results & Data Vital Signs (Past 12 Hours) Vital Signs Temp Pulse Resp BP Pulse Ox O2 Del Method 10/10/23 22:47 36.5 C 83 16 147/75 H 98 Room Air 10/10/23 20:00 Room Air, CPAP Resident Activity Tracking Resident Involvement: Resident Care Provided Care Provided: Adult Hospital Medicine (1) Diarrhea Diarrhea type: unspecified type Qualified Code(s): R19.7 - Diarrhea, unspecified (2) Pancreatitis Acute pancreatitis complication: unspecified Chronicity: acute Pancreatitis type: unspecified pancreatitis type Qualified Code(s): K85.90 - Acute pancreatitis without necrosis or infection, unspecified (3) Abdominal pain Abdominal location: unspecified location Qualified Code(s): R10.9 - Unspecified abdominal pain"
[2023-10-11] MEDS: POTASSIUM CHLORIDE / WTR 10 MEQ/100 ML PLCT IV SCH (08:33)
[2023-10-11] MEDS: dilTIAZem HCL 180 MG CAPCR PO SCH (08:35)
[2023-10-11] MEDS: ATORVASTATIN 20 MG TAB PO SCH (08:35)
--- NOTE | 2023-10-11 09:43 | Gastroenterology Progress Note ---
Date of Service October 11, 2023 Assessment & Plan (1) Pancreatitis: Plan: 77 year old female with presented to the ED w/ worsening diarrhea x 1 week, distant history of c.diff colitis years ago, imaging incidentally showing PD dilation, PD stone and acute pancreatitis. She is s/p CCY years ago, no apparent CBD stone on imaging. - Diarrhea, equivocal colitis vs diverticulitis on imaging - Positive sapovirus on stool PCR - Continue supportie measures - She is having a difficult time maintaining fluid intake - Consider admission for observation - Check stool culture and c.diff - If negative, consider low dose Questran once daily - CBD dilation, PD dilation, PD stone and acute pancreatitis - Symptomatic management - LR fluid hydration - Antiemetics PRN - May have clear liquids - Should have a referral for an outpatient EUS to be completed in about 4 weeks time Thank you for allowing us to participate in the care of this patient. Please call with any acute changes, questions or concerns. Please see addendum below with additional recommendation from my supervising physician. I spent a total of 55 minutes on the date of service in review of patient's record, and previously obtained information in person and appropriate medical visit, discussion and education of plan, with patient and/or caregiver, placing orders for tests/referral/procedures as medically necessary and documentation of pertinent clinical information in patient's medical records for their visit today. Admission and Anticipated Discharge Date Admission Date: October 10, 2023 Supervising Physician Co-Signing Physician Notes I examined the patient and reviewed patient's chart , laboratory data and imaging studies. I agree with with assessment and plan of care as suggested by advanced practice provider. Referral to [facility], Pancreatobiliary Unit for possible EUS and further evaluation of chronic pancreatitis is being arranged Subjective Pt was seen and evaluated, chart reviewed. Persistent diarrhea, largely unchanged. Endorses loose, watery stools every 2/3 hours. These occurred through the night. No black or bloody stools. Some nausea but no vomiting. + sapovirus CTAP 2023: Cholecystectomy with likely postsurgical biliary duct dilation. Additionally, there is pancreatic ductal dilation with equivocal mild acute pancreatitis associated with a 1.3 cm pancreatic ductal stone just proximal to the ampulla. GI consultation is needed. Colonic diverticulosis with equivocal findings of proximal sigmoid diverticulitis. No bowel obstruction or pneumoperitoneum. Scattered colonic air-fluid levels compatible with the patien t's history of diarrhea. Hepatic steatosis. Notes a colonoscopy at [facility] about 3-4 years ago. She has history of diverticulitis. Does not recall ever having EUS or ERCP in the past Has never had pancreatitis in the past Review of Systems Review of Systems: All other findings negative except as noted in HPI. Physical Exam Constitutional: WD/WN, vitals as above Respiratory: normal respiratory effort, lungs clear to auscultation Cardiovascular: Rate/Rhythm: regular rate and regular rhythm Gastrointestinal (Abdomen): normal bowel sounds, soft, nontender, no hepatosplenomegaly Skin: no rashes, warm and dry Results & Data Results & Data Vital Signs (Past 12 Hours) Vital Signs Temp Pulse Resp BP BP Pulse Ox O2 Del Method 10/11/23 07:48 36.4 C L 58 L 16 120/53 L 98 Room Air, CPAP 10/10/23 22:47 36.5 C 83 16 147/75 H 98 Room Air Laboratory Results 10/11/23 10/10/23 10/10/23 Range/Units 05:27 Unknown 12:00 WBC 5.61 (4.8-10.8) K/ul RBC 4.21 (4.20-5.40) M/uL Hgb 13.1 (12.0-16.0) g/dl POC Hgb (12.0-16.0) g/dl Hct 37.8 (37.0-47.0) % POC Hct (37-47) % MCV 89.8 (80.0-100.0) fL MCH 31.1 (25.0-34.0) pg MCHC 34.7 (32.0-36.0) g/dL RDW Std Deviation 45.8 (36.4-46.3) fL RDW Coeff of Joaquín 14.0 (11.5-14.5) % Plt Count 244 (130-400) K/uL MPV 11.2 (9.4-12.4) fL Immature Gran % (Auto) 0.4 % Neut % (Auto) 48.1 % Lymph % (Auto) 38.9 % Alpine % (Auto) 6.8 % Eos % (Auto) 5.3 % Baso % (Auto) 0.5 % Neut # (Auto) 2.70 (1.40-6.50) K/uL Lymph # (Auto) 2.18 (1.20-3.40) K/uL Alpine # (Auto) 0.38 (0.11-0.59) K/uL Eos # (Auto) 0.30 (0.00-0.50) K/uL Baso # (Auto) 0.03 (0.00-0.20) K/uL Immature Gran # (Auto) 0.02 (0.01-0.20) K/uL POC Sodium (135-144) mmol/L Sodium 141 (136-145) mmol/L POC Potassium (3.3-5.0) mmol/L Potassium 3.3 L (3.5-5.1) mmol/L POC Chloride (101-112) mmol/L Chloride 110 H (98-107) mmol/L Carbon Dioxide 24 (21-32) mmol/L POC Total CO2 (24-31) mmol/L Anion Gap 7 (3-11) POC Anion Gap (16-25) mmol/L POC BUN (7-18) mg/dl BUN 9 (6-23) mg/dl Creatinine 0.76 (0.6-1.2) mg/dl POC Creatinine (0.6-1.3) mg/dl Est Cr Clr Drug Dosing 74.2 ml/min Est GFR ( Amer) 87.7 ml/min Est GFR (Non-Af Amer) 75.7 ml/min BUN/Creatinine Ratio 11.8 (10-20) Glucose 114 H (70-99(Fasting)) mg/dl POC Glucose (other) (70-99) mg/dl Calcium 8.9 (8.6-10.3) mg/dl POC Ioniz Calcium Tuan (1.12-1.32) mmol/l Magnesium 1.9 (1.7-2.4) mg/dl Total Bilirubin 0.8 (0.2-1.0) mg/dl AST 27 (13-39) U/L ALT 43 (7-52) U/L Alkaline Phosphatase 65 (34-104) U/L Total Protein 6.0 (6.0-8.3) gm/dl Albumin 3.4 (3.4-5.0) gm/dl Globulin 2.6 (2.5-4.0) gm/dl Albumin/Globulin Ratio 1.3 (0.9-2) Lipase 24 (11-82) U/L Urine Color Yellow Urine Appearance Clear (Clear) Urine pH 6.0 (4.5-7.5) Ur Specific [place] 1.010 (1.000-1.030) Urine Protein Negative (Negative) Urine Glucose (UA) Negative (Negative) Urine Ketones Negative (Negative) Urine Blood Negative (Negative) Urine Nitrite Negative (Negative) Urine Bilirubin Negative (Negative) Urine Urobilinogen Negative (Negative) Ur Leukocyte Esterase Negative (Negative) Stl C. cayetanensis PCR Not Detected (NotDetected) Stool Rotavirus A PCR Not Detected (NotDetected) Stl Adenov F 40/41 PCR Not Detected (NotDetected) Stool Astrovirus (PCR) Not Detected (NotDetected) Stool Campylobacter PCR Not Detected (NotDetected) Stl C. diff Tox B Gene Negative Cdiff Gene (Neg) Stool Cryptosporidium PCR Not Detected (NotDetected) Stl E.coli Shiga Tox PCR Not Detected (NotDetected) Stl Enterotoxigenic E PCR Not Detected (NotDetected) Stool EPEC (PCR) Not Detected (NotDetected) Stool EAEC (PCR) Not Detected (NotDetected) Stl E. histolytica PCR Not Detected (NotDetected) Stool Giardia Lamblia PCR Not Detected (NotDetected) Stool Salmonella PCR Not Detected (NotDetected) Stool Sapovirus (PCR) DETECTED A* (NotDetected) Stl P. shigelloides PCR Not Detected (NotDetected) Stl Shigella/EIEC PCR Not Detected (NotDetected) St Y.enterocolitica PCR Not Detected (NotDetected) Stool Vibrio (PCR) Not Detected (NotDetected) Stl Vibrio cholerae PCR Not Detected (NotDetected) Stl Norovirus GI/GII PCR Not Detected (NotDetected) 10/10/23 10/10/23 Range/Units 11:35 11:27 WBC 7.71 (4.8-10.8) K/ul RBC 4.75 (4.20-5.40) M/uL Hgb 14.7 (12.0-16.0) g/dl POC Hgb 13.9 (12.0-16.0) g/dl Hct 41.4 (37.0-47.0) % POC Hct 41 (37-47) % MCV 87.2 (80.0-100.0) fL MCH 30.9 (25.0-34.0) pg MCHC 35.5 (32.0-36.0) g/dL RDW Std Deviation 44.1 (36.4-46.3) fL RDW Coeff of Joaquín 13.8 (11.5-14.5) % Plt Count 293 (130-400) K/uL MPV 10.7 (9.4-12.4) fL Immature Gran % (Auto) 0.3 % Neut % (Auto) 58.3 % Lymph % (Auto) 31.9 % Alpine % (Auto) 7.3 % Eos % (Auto) 1.9 % Baso % (Auto) 0.3 % Neut # (Auto) 4.50 (1.40-6.50) K/uL Lymph # (Auto) 2.46 (1.20-3.40) K/uL Alpine # (Auto) 0.56 (0.11-0.59) K/uL Eos # (Auto) 0.15 (0.00-0.50) K/uL Baso # (Auto) 0.02 (0.00-0.20) K/uL Immature Gran # (Auto) 0.02 (0.01-0.20) K/uL POC Sodium 135 (135-144) mmol/L Sodium 133 L (136-145) mmol/L POC Potassium 3.4 (3.3-5.0) mmol/L Potassium 3.4 L (3.5-5.1) mmol/L POC Chloride 101 (101-112) mmol/L Chloride 101 (98-107) mmol/L Carbon Dioxide 22 (21-32) mmol/L POC Total CO2 20 L (24-31) mmol/L Anion Gap 10 (3-11) POC Anion Gap 19.0 (16-25) mmol/L POC BUN 13 (7-18) mg/dl BUN 15 (6-23) mg/dl Creatinine 0.98 (0.6-1.2) mg/dl POC Creatinine 1.0 (0.6-1.3) mg/dl Est Cr Clr Drug Dosing 57.1 ml/min Est GFR ( Amer) 64.5 ml/min Est GFR (Non-Af Amer) 55.6 ml/min BUN/Creatinine Ratio 15.3 (10-20) Glucose 146 H (70-99(Fasting)) mg/dl POC Glucose (other) 141 H (70-99) mg/dl Calcium 9.2 (8.6-10.3) mg/dl POC Ioniz Calcium Tuan 1.11 L (1.12-1.32) mmol/l Magnesium 1.7 (1.7-2.4) mg/dl Total Bilirubin 1.1 H (0.2-1.0) mg/dl AST 33 (13-39) U/L ALT 59 H (7-52) U/L Alkaline Phosphatase 88 (34-104) U/L Total Protein 7.3 (6.0-8.3) gm/dl Albumin 4.1 (3.4-5.0) gm/dl Globulin 3.2 (2.5-4.0) gm/dl Albumin/Globulin Ratio 1.3 (0.9-2) Lipase 26 (11-82) U/L Urine Color Urine Appearance (Clear) Urine pH (4.5-7.5) Ur Specific [place] (1.000-1.030) Urine Protein (Negative) Urine Glucose (UA) (Negative) Urine Ketones (Negative) Urine Blood (Negative) Urine Nitrite (Negative) Urine Bilirubin (Negative) Urine Urobilinogen (Negative) Ur Leukocyte Esterase (Negative) Stl C. cayetanensis PCR (NotDetected) Stool Rotavirus A PCR (NotDetected) Stl Adenov F 40/41 PCR (NotDetected) Stool Astrovirus (PCR) (NotDetected) Stool Campylobacter PCR (NotDetected) Stl C. diff Tox B Gene (Neg) Stool Cryptosporidium PCR (NotDetected) Stl E.coli Shiga Tox PCR (NotDetected) Stl Enterotoxigenic E PCR (NotDetected) Stool EPEC (PCR) (NotDetected) Stool EAEC (PCR) (NotDetected) Stl E. histolytica PCR (NotDetected) Stool Giardia Lamblia PCR (NotDetected) Stool Salmonella PCR (NotDetected) Stool Sapovirus (PCR) (NotDetected) Stl P. shigelloides PCR (NotDetected) Stl Shigella/EIEC PCR (NotDetected) St Y.enterocolitica PCR (NotDetected) Stool Vibrio (PCR) (NotDetected) Stl Vibrio cholerae PCR (NotDetected) Stl Norovirus GI/GII PCR (NotDetected) PG Care Time/CCT Total # of Minutes Spent Total Time Spent with Patient: Total time spent is greater than 50% in coordination of care (as documented) at patient's floor/unit and/or counseling patient: Coding Level of Care Code 84544 SUB INP/OBS CARE 50MIN Diagnoses Pancreatitis K85.90 Acute pancreatitis complication: unspecified Chronicity: acute Pancreatitis type: unspecified pancreatitis type (1) Pancreatitis Acute pancreatitis complication: unspecified Chronicity: acute Pancreatitis type: unspecified pancreatitis type Qualified Code(s): K85.90 - Acute pancreatitis without necrosis or infection, unspecified
[2023-10-11] MEDS: LOPERAMIDE HCL 2 MG CAP PO STA (10:47)
[2023-10-11] MEDS: POTASSIUM CHLORIDE CRTAB 20 MEQ TABCR PO STA (11:52)
[2023-10-11] MEDS ORDERED: LOPERAMIDE HCL 2 MG CAP PO PRN (15:09)
[2023-10-11] MEDS: LOPERAMIDE HCL 2 MG CAP PO PRN (16:24)
--- NOTE | 2023-10-11 18:05 | Billing Data ---
Date of Service October 11, 2023 Coding Level of Care Code 43408 SUB INP/OBS CARE
[2023-10-11] MEDS: PSYLLIUM or GUAR GUM FIBER 4GM PACKET PO SCH (22:06)
[2023-10-11] MEDS: MELATONIN 3 MG TAB PO PRN (22:08)
[2023-10-12 06:45] LABS: Basophils # (auto) 0.03 K/uL (0.00-0.20); Basophils % (auto) 0.4 %; Eosinophils # (auto) 0.31 K/uL (0.00-0.50); Eosinophils % (auto) 3.7 %; Hematocrit (blood only) 39.9 % (37.0-47.0); Hemoglobin 13.6 g/dl (12.0-16.0); Immature Granulocytes # (auto) 0.02 K/uL (0.01-0.20); Immature Granulocytes % (auto) 0.2 %; Lymphocytes # (auto) 2.31 K/uL (1.20-3.40); Lymphocytes % (auto) 27.8 %; Mean Corpuscular Hemoglobin 30.8 pg (25.0-34.0); Mean Corpuscular Hgb Conc 34.1 g/dL (32.0-36.0); Mean Corpuscular Volume 90.3 fL (80.0-100.0); Mean Platelet Volume 11.3 fL (9.4-12.4); Neutrophils # (auto) 5.14 K/uL (1.40-6.50); Neutrophils % (auto) 61.9 %; Platelet Count 189 K/uL (130-400); RDW Coefficient of Variation 14.1 % (11.5-14.5); RDW Standard Deviation 46.3 fL (36.4-46.3); Red Blood Count 4.42 M/uL (4.20-5.40); White Blood Count 8.31 K/ul (4.8-10.8)
--- NOTE | 2023-10-12 07:04 | Hospitalist Progress Note ---
"Date of Service October 12, 2023 Assessment & Plan (1) Diarrhea: (2) Pancreatitis: (3) Abdominal pain: (4) Hypokalemia: Plan Debra is a 77F w/ PMH of pancreatic ductal stone who presented with profuse liquid diarrhea and was admitted for supportive management of acute Sapovirus infection. Diarrhea | Sapovirus Positive - Reduction in diarrhea frequency overnight (ongoing since 10/04) Notes benefit with Metamucil/Imodium - No recent antibiotic use, no abdominal pain C Diff negative - Continue supportive measures IVFs held, diet advanced to regular Imodium PRN Metamucil BID to aid in stool bulk formation Tylenol PRN for pain Zofran PRN for nausea - Follow labs Pancreatitis: - A/P CT revealed mild acute pancreatitis with an associated 1.3 cm pancreatic ductal stone Patient reports she has known about this stone for several years and it has never caused her issues - No active epigstric/abdominal pain or pain radiating to back - Lipase WNL and downtrending - GI recommending supportive measures w/ possible outpatient EUS Hypokalemia - Resolved Plan Disposition: Med/Surg, requiring ongoing supportive measures, probable dc 10/12 Code: Full code Diet: Regular VTE PPx: SCDs/Ambulation Admission and Anticipated Discharge Date Admission Date: October 10, 2023 Supervising Physician Co-Signing Physician Notes I personally examined the patient and verified all hoffman points of history and exam, discussed case, and agree with decision making with Dr Guzmán diarrhea is slowing downno bowel movements from about midnight to 5 AM. Eating liquids well. vitals noted nad but fatigued heent nc at mmm breathing unlabored no accessory muscles good effort skin without rashes pallor or icterus neuro no focal deficits ongoing intractable diarrhea - Cdiff negative, sapovirus (+). supportive care, imodium, fiber, possibly cholestyramineBut starting to show improvement. Continue to follow. Hopefully home in the next day or so. otherwise as above Subjective No acute events overnight. Patient notes feeling much better. Had a 5 hour stretch overnight w/o loose bowel movements. Believes Metamucil was beneficial. Denies abdominal pain, nausea, or emesis. No fevers or chills. Physical Exam Physical Exam: General: NAD, pleasant, alert HEENT: NCAT, anicteric sclera, dry mucous membranes Skin: No rashes, lesions, or erythema CV: RRR, no MRG Lungs: Non-labored, CTAB ABD: Soft, non-distended, no TTP, active bowel sounds, no masses Neuro: A&Ox3 Results & Data Results & Data Vital Signs (Past 12 Hours) Vital Signs Temp Pulse Resp BP Pulse Ox O2 Del Method 10/11/23 22:27 36.4 C L 82 18 152/80 H 98 Room Air 10/11/23 22:00 Room Air, CPAP Resident Activity Tracking Resident Involvement: Resident Care Provided Care Provided: Adult Hospital Medicine (1) Diarrhea Diarrhea type: unspecified type Qualified Code(s): R19.7 - Diarrhea, unspecified (2) Pancreatitis Acute pancreatitis complication: unspecified Chronicity: acute Pancreatitis type: unspecified pancreatitis type Qualified Code(s): K85.90 - Acute pancreatitis without necrosis or infection, unspecified (3) Abdominal pain Abdominal location: unspecified location Qualified Code(s): R10.9 - Unspecified abdominal pain"
[2023-10-12 07:11] LABS: Albumin Level 3.4 gm/dl (3.4-5.0); Bilirubin,Total 0.7 mg/dl (0.2-1.0); Potassium 3.8 mmol/L (3.5-5.1)
[2023-10-12 07:17] LABS: Albumin Globulin Ratio 1.5 (0.9-2); BUN Creatinine Ratio 6.6 (10-20); Creatinine Clr Calc Pharmacy 74.2 ml/min; Est GFR (African American) 87.7 ml/min; Est GFR (Non-African American) 75.7 ml/min; Globulin 2.3 gm/dl (2.5-4.0); Total Protein 5.7 gm/dl (6.0-8.3)
--- NOTE | 2023-10-12 08:51 | Gastroenterology Progress Note ---
Date of Service October 12, 2023 Assessment & Plan (1) Pancreatitis: Plan: 77 year old female with presented to the ED w/ worsening diarrhea x 1 week, distant history of c.diff colitis years ago, imaging incidentally showing PD dilation, PD stone and acute pancreatitis. She is s/p CCY years ago, no apparent CBD stone on imaging. - Diarrhea, equivocal colitis vs diverticulitis on imaging - Positive sapovirus on stool PCR - Continue supportive measures - Consider low dose Questran once daily - CBD dilation, PD dilation, PD stone and acute pancreatitis - Please ensure she has a GI referral at time of discharge for EUS - Symptomatic management - LR fluid hydration - Antiemetics PRN - May have clear liquids - Should have a referral for an outpatient EUS to be completed in about 4 weeks time Thank you for allowing us to participate in the care of this patient. Please call with any acute changes, questions or concerns. Please see addendum below with additional recommendation from my supervising physician. I spent a total of 55 minutes on the date of service in review of patient's record, and previously obtained information in person and appropriate medical visit, discussion and education of plan, with patient and/or caregiver, placing orders for tests/referral/procedures as medically necessary and documentation of pertinent clinical information in patient's medical records for their visit today. Admission and Anticipated Discharge Date Admission Date: October 10, 2023 Supervising Physician Co-Signing Physician Notes I examined the patient and reviewed patient's chart , laboratory data and imaging studies. I agree with with assessment and plan of care as suggested by advanced practice provider. The patient is slowly improving. Will sign off and see as needed. Subjective Pt was seen and evaluated, chart reviewed. She is frustrated. She is improving slowly. She suggest 2 BMs since midnight. There is improved in the frequency. Starting to see some form to her stool. No black or bloody stools. Review of Systems Review of Systems: All other findings negative except as noted in HPI. Physical Exam Constitutional: WD/WN, vitals as above Respiratory: normal respiratory effort, lungs clear to auscultation Cardiovascular: Rate/Rhythm: regular rate and regular rhythm Gastrointestinal (Abdomen): normal bowel sounds, soft, nontender, no hepatosplenomegaly Skin: no rashes, warm and dry Results & Data Results & Data Vital Signs (Past 12 Hours) Vital Signs Temp Pulse Resp BP Pulse Ox O2 Del Method 10/12/23 08:12 36.4 C L 75 18 152/86 H 99 Room Air, CPAP 10/11/23 22:27 36.4 C L 82 18 152/80 H 98 Room Air 10/11/23 22:00 Room Air, CPAP PG Care Time/CCT Total # of Minutes Spent Total Time Spent with Patient: Total time spent is greater than 50% in coordination of care (as documented) at patient's floor/unit and/or counseling patient: Coding Level of Care Code 48247 SUB INP/OBS CARE 3/50MIN Diagnoses Pancreatitis K85.90 Acute pancreatitis complication: unspecified Chronicity: acute Pancreatitis type: unspecified pancreatitis type (1) Pancreatitis Acute pancreatitis complication: unspecified Chronicity: acute Pancreatitis type: unspecified pancreatitis type Qualified Code(s): K85.90 - Acute pancreatitis without necrosis or infection, unspecified
[2023-10-12 14:48] VITALS: O2SAT 97
--- NOTE | 2023-10-12 18:53 | Billing Data ---
Date of Service October 12, 2023 Coding Level of Care Code 42154 SUB INP/OBS CARE
[2023-10-12 19:34] VITALS: TEMP 97.3
[2023-10-13 07:14] VITALS: BP 140/76; PULSE 62; RESP 18
--- NOTE | 2023-10-13 07:37 | Hospitalist Progress Note ---
"Date of Service October 13, 2023 Assessment & Plan (1) Diarrhea: (2) Pancreatitis: (3) Abdominal pain: (4) Hypokalemia: Plan Debra is a 77F w/ PMH of pancreatic ductal stone who presented with profuse liquid diarrhea and was admitted for supportive management of acute Sapovirus infection. Diarrhea | Sapovirus Positive - Reduction in diarrhea frequency overnight (ongoing since 10/04) Notes benefit with Metamucil/Imodium - No recent antibiotic use, no abdominal pain C Diff negative - Continue supportive measures IVFs held, diet advanced to regular Imodium PRN Metamucil BID to aid in stool bulk formation Tylenol PRN for pain Zofran PRN for nausea - Follow labs Pancreatitis: - A/P CT revealed mild acute pancreatitis with an associated 1.3 cm pancreatic ductal stone Patient reports she has known about this stone for several years and it has never caused her issues - No active epigstric/abdominal pain or pain radiating to back - Lipase WNL and downtrending - GI recommending supportive measures w/ possible outpatient EUS Hypokalemia - Resolved Plan Disposition: Med/Surg, requiring ongoing supportive measures, probable dc 10/12 Code: Full code Diet: Regular VTE PPx: SCDs/Ambulation Admission and Anticipated Discharge Date Admission Date: October 12, 2023 Results & Data Results & Data Vital Signs (Past 12 Hours) Vital Signs Temp Pulse Resp BP Pulse Ox O2 Del Method 10/13/23 07:11 36.3 C L 62 18 140/76 97 CPAP 10/12/23 21:55 Room Air, CPAP (1) Diarrhea Diarrhea type: unspecified type Qualified Code(s): R19.7 - Diarrhea, unspecified (2) Pancreatitis Acute pancreatitis complication: unspecified Chronicity: acute Pancreatitis type: unspecified pancreatitis type Qualified Code(s): K85.90 - Acute pancreatitis without necrosis or infection, unspecified (3) Abdominal pain Abdominal location: unspecified location Qualified Code(s): R10.9 - Unspecified abdominal pain"
[2023-10-13 08:17] LABS: Basophils # (auto) 0.04 K/uL (0.00-0.20); Basophils % (auto) 0.7 %; Eosinophils # (auto) 0.24 K/uL (0.00-0.50); Hematocrit (blood only) 39.1 % (37.0-47.0); Hemoglobin 13.2 g/dl (12.0-16.0); Immature Granulocytes # (auto) 0.02 K/uL (0.01-0.20); Immature Granulocytes % (auto) 0.3 %; Lymphocytes # (auto) 2.22 K/uL (1.20-3.40); Lymphocytes % (auto) 37.2 %; Mean Corpuscular Hemoglobin 30.7 pg (25.0-34.0); Mean Corpuscular Hgb Conc 33.8 g/dL (32.0-36.0); Mean Corpuscular Volume 90.9 fL (80.0-100.0); Monocytes # (auto) 0.38 K/uL (0.11-0.59); Monocytes % (auto) 6.4 %; Neutrophils # (auto) 3.06 K/uL (1.40-6.50); Neutrophils % (auto) 51.4 %; Platelet Count 221 K/uL (130-400); RDW Coefficient of Variation 14.4 % (11.5-14.5); RDW Standard Deviation 47.2 fL (36.4-46.3); White Blood Count 5.96 K/ul (4.8-10.8)
[2023-10-13 08:34] LABS: Albumin Globulin Ratio 1.4 (0.9-2); Albumin Level 3.5 gm/dl (3.4-5.0); BUN Creatinine Ratio 11.3 (10-20); Bilirubin,Total 0.8 mg/dl (0.2-1.0); Calcium 9.5 mg/dl (8.6-10.3); Creatinine Clr Calc Pharmacy 70.5 ml/min; Est GFR (African American) 82.4 ml/min; Est GFR (Non-African American) 71.1 ml/min; Globulin 2.5 gm/dl (2.5-4.0); Potassium 3.8 mmol/L (3.5-5.1)
--- NOTE | 2023-10-13 09:34 | Discharge Summary ---
"Date of Service October 13, 2023 Admission HPI Per Admitting Provider Debra is a pleasant 77yo female with PMH of diverticulitis, C. difficile (secondary to clindamycin use), HTN, HLD, ALLEY, and GERD. She presented for diarrhea since 10/04. Patient reports she has been having diarrhea every hour between to Monday, and then had 5-6 episodes of diarrhea today. No blood in stool. Patient did take Pepto-Bismol on the first day, and reports that she had black liquidy stool after taking, but this has since reverted back to a brown/mucousy stool. Stool is liquid in consistency. No solid stool in between. She denies nausea or vomiting. No recent change in diet prior to diarrhea starting; however, she notes she has not been eating much since the diarrhea started. Patient did not take her regular morning medications today; no recent change in medication. She has not recently been on antibiotics. She does not use supplemental oxygen at home, but does use a CPAP at night. No sick contacts. No recent travel. Patient does have a history of intermittent IBS, but she has never had diarrhea like this in the past. No history of gluten allergy or food intolerances. She does have a history of diverticulitis, colitis, and C. difficile 5 years ago after taking clindamycin for an infection. She denies smoking, tobacco use, and alcohol use. Patient is hypertensive at 175/87 at time of admission; vitals otherwise stable. ED course: NSS 1000 mL IV K rider 10mEq x 2 ROS: Patient endorses generalized fatigue, TRIPP (resolved), dry cough (which patient relates to sinus congestion and allergies), diarrhea, Patient denies fever, chills, night-sweats, dizziness, lightheadedness, chest pain, chest palpation, pleuritic CP, SOB, abdominal pain/cramping, burning with urination, dysuria, blood in the urine/stool, or numbness/tingling in the arms or legs. Admission Exam Per Admitting Provider General: no acute distress; pleasant affect; non-toxic appearing; well- nourished; cooperative; SpO2 98% on RA HEENT: normocephalic, atraumatic; no scleral icterus; PERRLA; moist mucus membrane; vision and hearing grossly intact Neck: supple; no lymphadenopathy; trachea midline Skin: warm, dry without signs of tenting; no cyanosis; no rashes, bruising, lesions, or erythema noted CV: chest wall NTP; RRR; S1/S2 normal; no murmurs/rubs/gallops; pulses intact and symmetric at radial, DP, and PT Lungs: no acute respiratory distress; symmetrical chest wall expansion; clear breath sounds across all lung love w/o adventitious sounds; no wheezing ABD: Soft; all 4 quadrants are NTP; BS present; no rebound/guarding; no distention; no rashes or bruising on the abdomen or flanks MSK: no tics or fasciculations; no edema noted in the LEs b/l, nonerythematous Neuro: A&Ox3; normal mood and affect; fluent speech; no focal deficits; sensation grossly intact in the LEs b/l Principal Diagnosis Sapovirus gastroenteritis Discharge Exam Constitutional WD/WN, vitals as above Eyes PERRL, conjunctivae normal, anicteric sclerae ENMT external ear and nose normal, oropharynx normal Respiratory normal respiratory effort Psychiatric A+Ox3, euthymic affect Discharge Data Allergies Allergy/AdvReac Type Severity Reaction Status Date / Time clindamycin Allergy Diarrhea Verified 10/10/23 14:38 Penicillins Allergy Hives Verified 10/10/23 14:38 Consultations 10/10/23 12:43 Consult Gastroenterology Stat 10/10/23 13:36 ED Decision to Admit Stat Ordered Studies 10/10/23 11:00 CT Abd and Pelvis [CT abd pelvis IV con only] Stat IMPRESSION: 1. Cholecystectomy with likely postsurgical biliary duct dilation. Additionally, there is pancreatic ductal dilation with equivocal mild acute pancreatitis associated with a 1.3 cm pancreatic ductal stone just proximal to the ampulla. GI consultation is needed. 2. Colonic diverticulosis with equivocal findings of proximal sigmoid diverticulitis. 3. No bowel obstruction or pneumoperitoneum. 4. Scattered colonic air-fluid levels compatible with the patient's history of diarrhea. 5. Hepatic steatosis. Hospital Course (1) Diarrhea: (2) Pancreatitis: (3) Abdominal pain: (4) Hypokalemia: Pierre Richardson is a 77F w/ PMH of pancreatic ductal stone who presented with profuse liquid diarrhea and was admitted for supportive management of acute Sapovirus infection. Diarrhea | Sapovirus Positive - Reduction in diarrhea frequency overnight (ongoing since 10/04) Notes benefit with Metamucil/Imodium - No recent antibiotic use, no abdominal pain C Diff negative. +Sapovirus - Improved on IV fluids, Metamucil BID. - Told patient to continue Metamucil daily on discharge until diarrhea fully resovled. Pancreatitis: - A/P CT revealed mild acute pancreatitis with an associated 1.3 cm pancreatic ductal stone Patient reports she has known about this stone for several years and it has never caused her issues - No active epigstric/abdominal pain or pain radiating to back - Lipase WNL and downtrending - GI recommending supportive measures w/ possible outpatient EUS Total Time Total Time Spent Total Time Spent (In Minutes): <30 Discharge Plan Discharge Items Patient Disposition: Home - Self-Care Reason For Visit: SAPOVIRUS DIARRHEA Discharge Diagnosis: Diarrhea Activity: Per Instructions section Non-emergency contact: Primary Care Provider Call non-emergency contact if: your symptoms worsen, your pain is worsening and your temperature is above 101 Follow-up/Referrals: Zara Mims MD [Primary Care Provider] - 10/20/23 11:45 am Diet: Regular Addtl Attending Provider Instructions: You came into the hospital due to frequent diarrhea. You were found to have a viral gastroenteritis with the causative agent being sapovirus. Over the course of your stay you were given fluid rehydration and medicines to help improve your symptoms. At this time your diarrhea has slowed down enough where you are stable and okay to return home. When you leave the hospital please continue taking the metamucil packets daily to help with the diarrhea until it is fully resolved. If you have any recurrence of your symptoms please contact your primary care d tiera or come back to the hospital. Pending Studies at Discharge: No Stand-Alone Forms: My [facility], Smoking Cessation Medications and DC Order Prescriptions: New Psyllium Or Guar Gum Fiber Sup [Metamucil Or Nutrisource Fiber Supplement] 4 g PO DAILY Qty: 0 0RF Continued atorvastatin 20 mg tablet 20 mg PO DAILY diltiazem HCl 180 mg capsule,extended release 24hr 180 mg PO DAILY omeprazole 20 mg capsule,delayed release(DR/EC) 20 mg PO BID fluticasone propionate 50 mcg/actuation spray,suspension 2 spray INTRANASAL DAILY PRN (Reason: congestion/allergies) acidophilus-pectin, citrus 25 million cell -100 mg tablet 1 tab PO DAILY naproxen sodium [Aleve] 220 mg Tablet 220 mg PO DAILY Discharge Orders: Discharge Order (Routine); Ordered 10/13/23 Ordered By: Dandre Godfrey Admission Data Admit Date/Time: 10/12/23 15:59 Attending Provider: Loc Mccoy Admit Provider: Asif Guzmán Primary Care Provider: Zara Mims Other Providers: Camacho Edmonds Tomasz J. Other Interventions: Discharge Summary Assessment (RN) Last Done: 10/13/23 14:10 Supervising Physician Co-Signing Physician Notes I personally examined the patient and verified all hoffman points of history and exam, discussed case, and agree with decision making with Dr Godfrey feels up to going home vitals noted nad but fatigued heent nc at mmm breathing unlabored no accessory muscles good effort skin without rashes pallor or icterus neuro no focal deficits ongoing intractable diarrhea - Cdiff negative, sapovirus (+). now improved. tolerating PO. safe/stable for home otherwise as above Resident Activity Tracking Resident Involvement: Resident Care Provided Care Provided: Adult Hospital Medicine"
--- NOTE | 2023-10-13 19:53 | Billing Data ---
Date of Service October 13, 2023 Coding Level of Care Code 35353 IN/OBS DISCH 30 MIN/LESS
== END 2023-10-13 14:43 | disposition home or self-care (01) | DRG 391 ==
LOC: EDINP 10:39 → ED 10:39 → SUATTDRO 14:31 → 3N 20:03
DX: Z88.1 Allergy status to other antibiotic agents; A08.39 Other viral enteritis; Z88.0 Allergy status to penicillin; K85.90 Acute pancreatitis without necrosis or infection, unspecified; I10 Essential (primary) hypertension; K86.89 Other specified diseases of pancreas; G47.33 Obstructive sleep apnea (adult) (pediatric); E78.5 Hyperlipidemia, unspecified; E87.6 Hypokalemia